=== PATIENT | female | born 1965 | race Caucasian/White ===

== ENCOUNTER → 2020-09-13 | Outpatient (CLI) | payer OTHER ==
--- NOTE | 2020-09-13 11:53 | REP ---
INDICATION: LUMBAR RADICULOPATHY. COMPARISON: Comparison MRI study of the lumbar spine is from October 17, 2019.. TECHNIQUE: Sagittal and axial T1 and T2-weighted scans are acquired in the usual fashion with and without fat saturation. Sequences include spin echo, turbo spin-echo, and STIR imaging sequences. FINDINGS: Lumbar vertebral body heights are preserved. Alignment is normal. There is no evidence of spondylolysis or spondylolisthesis. Cortical and medullary bone signal intensity are normal. No extra vertebral abnormality is observed. The tip of the conus medullaris is normal in position and appearance at L1-L2. Axial and sagittal images taken at L1-2 and L2-3 show no evidence of disc protrusion, spinal stenosis, or foraminal narrowing. At L3-4, there is minimal diffuse disc bulging. No spinal stenosis or foraminal narrowing is appreciated. There is mild ligamentum flavum and facet hypertrophy. At L4-L5, there is moderate central canal stenosis due to diffuse disc bulging, ligamentum flavum and facet hypertrophy, and developmentally short pedicles. There is bilateral foraminal disc bulging but nerve roots do not appear compressed. Midline AP dimension of the thecal sac at L4-5 is 5 mm. These findings are unchanged. At L5-S1, there is a moderate size right paracentral focal disc protrusion which in combination with diffuse disc bulging, ligamentum flavum and facet hypertrophy, and developmentally short pedicles produces severe central canal stenosis. The disc protrusion extends caudally and bilaterally into the lateral recesses. There is severe thecal sac compression. CSF signal is effaced from the thecal sac at this level. Midline AP dimension of the thecal sac is 5.6 mm. Findings are essentially unchanged. IMPRESSION: Significant central canal stenosis at L4-5 and L5-S1. Right paracentral focal disc protrusion at L5-S1. Advanced facet and ligamentum flavum hypertrophy. Findings are unchanged from October 17, 2019. <Electronically signed by Rodger Naylor > 09/13/20 [id number]
== END ==
LOC: M RAD 10:08
PROVIDERS: ATTEND Nurse Practitioner Family
DX: M54.16 Radiculopathy, lumbar region (principal)

== ENCOUNTER → 2021-07-29 | Outpatient (CLI) | payer OTHER | LOC: M WHC 09:27 | PROVIDERS: ATTEND Family Medicine | DX: Z12.31 Encounter for screening mammogram for malignant neoplasm of breast (principal); Z13.820 Encounter for screening for osteoporosis; M85.851 Other specified disorders of bone density and structure, right thigh; M85.852 Other specified disorders of bone density and structure, left thigh; M85.88 Other specified disorders of bone density and structure, other site ==

== ENCOUNTER → 2022-06-16 | Outpatient (CLI) | payer OTHER ==
[2022-06-16 09:35] LABS: BASO # 0.1 10^3/uL (0.0-0.2); EOS # 0.1 10^3/uL (0.0-0.5); EOS % 1.7 % (0.0-3.0); HEMOGLOBIN 14.9 g/dl (12.0-15.5); LYMPH # 1.1 10^3/uL (1.5-5.0); LYMPH % 15.5 % (24.0-44.0); MEAN CORPUSCULAR HEMOGLOBIN 31.4 pg (27.0-33.0); MEAN CORPUSCULAR HGB CONC 33.1 g/dl (32.0-36.5); MEAN CORPUSCULAR VOLUME 94.9 fl (80.0-96.0); MONO # 0.7 10^3/uL (0.0-0.8); MONO % 9.2 % (2.0-8.0); NEUTROPHILS # 5.3 10^3/uL (1.5-8.5); NEUTROPHILS % 72.3 % (36.0-66.0); PLATELET COUNT, AUTOMATED 283 10^3/uL (150-450); RED BLOOD COUNT 4.74 10^6/uL (4.00-5.40); WHITE BLOOD COUNT 7.3 10^3/uL (4.0-10.0)
[2022-06-16 10:01] LABS: ALBUMIN 4.1 G/DL (3.2-5.2); ALKALINE PHOSPHATASE 79 U/L (46-116); ALT/SGPT 22 U/L (7.0-40); AST/SGOT 22 U/L (<34); BILIRUBIN,TOTAL 0.4 MG/DL (0.3-1.2); BLOOD UREA NITROGEN 17 MG/DL (9-23); CALCIUM LEVEL 9.9 MG/DL (8.5-10.1); CARBON DIOXIDE LEVEL 30 MMOL/L (20-31); CHLORIDE LEVEL 107 MMOL/L (98-107); CREATININE FOR GFR 0.62 MG/DL (0.55-1.30); GLOMERULAR FILTRATION RATE > 60.0 (>51); GLUCOSE, FASTING 91 MG/DL (60-100); POTASSIUM SERUM 4.5 MMOL/L (3.5-5.1); SODIUM LEVEL 140 MMOL/L (136-145)
[2022-06-16 10:02] LABS: THYROID STIMULATING HORMONE 0.498 uIU/ML (0.55-4.78); TOTAL 25(OH) VITAMIN D 47.7 NG/ML (20.0-100.0)
[2022-06-16 10:03] LABS: FOLATE > 24.0 NG/ML (>5.4); FREE T4 1.31 NG/DL (0.89-1.76); VITAMIN B12 LEVEL 433 PG/ML (211-911)
== END ==
LOC: M LAB 08:47
PROVIDERS: ATTEND Physician Assistant
DX: E55.9 Vitamin D deficiency, unspecified (principal); Z13.29 Encounter for screening for other suspected endocrine disorder

== ENCOUNTER → 2024-01-13 | Outpatient (CLI) | payer OTHER | LOC: M PLAIMG 10:52 | PROVIDERS: ATTEND Physician Assistant | DX: M43.26 Fusion of spine, lumbar region (principal); M51.36 Other intervertebral disc degeneration, lumbar region ==

== ENCOUNTER → 2024-01-13 | Outpatient (CLI) | payer OTHER | LOC: M PLARAD 09:54 | PROVIDERS: ATTEND Physician Assistant | DX: G44.52 New daily persistent headache (NDPH) (principal) ==

== ENCOUNTER → 2025-01-31 | Outpatient (CLI) | payer OTHER | LOC: M PLAIMG 10:08 → M PLARAD 10:08 | PROVIDERS: ATTEND Family Medicine | DX: J18.9 Pneumonia, unspecified organism (principal) ==